=== PATIENT | female | born 1975 | race Caucasian/White ===

== ENCOUNTER → 2020-02-02 10:13 | Outpatient (BNVA) | payer OTHER, SELFPAY | PROVIDERS: Visit Provider Nurse Practitioner Family | DX: Z11.59 Encounter for screening for other viral diseases (principal) | CPT/HCPCS: 87635 ==

== ENCOUNTER 2020-06-05 04:33 | Emergency (ER) | payer OTHER, SELFPAY ==
[2020-06-05 04:35] VITALS: BP 152/116; PULSE 99; RESP 18; TEMP 36.4; O2SAT 100; BMI 23.8
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
--- NOTE | 2020-06-05 04:50 | PC.NURSE ---
Attempted to start IV on pt and draw blood and she refused. Explained to pt that IV site would be used for CT scans and blood would be to check her for possible blood loss and she refused to have IV established. Explained to pt that the blood work was important to establish a baseline for in case she is bleeding or gets worse in next few days and pt still refuses IV stick.
[2020-06-05 06:11] VITALS: RESP 16; O2SAT 99
[2020-06-05] MEDS: oxyCODONE-APAP 5-325 mg Tablet 1 TAB PO (06:11)
[2020-06-05 06:13] VITALS: PULSE 104; RESP 16; O2SAT 99
--- NOTE | 2020-06-07 12:50 | DCPLANNER ---
shop manager had message to schedule a follow up appointment for patient with [facility]. shop manager called the [facility], spoke with Lizz, gave clinic patients information. shop manager was told that patients information would be printed and reviewed. Clinic will call patient with appointment information.
--- NOTE | 2020-06-09 11:47 | DCPLANNER ---
Patient had a follow up appointment scheduled for 06.09.20 with [facility] - patient did attend appointment.
== END 2020-06-05 06:14 | disposition home or self-care (01) ==
PROVIDERS: Emergency Provider Emergency Medicine
DX: S32.009A Unspecified fracture of unspecified lumbar vertebra, initial encounter for closed fracture (principal); N85.9 Noninflammatory disorder of uterus, unspecified; V89.2XXA Person injured in unspecified motor-vehicle accident, traffic, initial encounter
CPT/HCPCS: 12345; 70450; 72125; 74176; 99281; 99283

== ENCOUNTER → 2020-06-29 13:11 | Outpatient (BNVA) | payer OTHER, SELFPAY | PROVIDERS: Visit Provider Orthopaedic Surgery | DX: S32.009A Unspecified fracture of unspecified lumbar vertebra, initial encounter for closed fracture (principal); X58.XXXA Exposure to other specified factors, initial encounter | CPT/HCPCS: 72100 ==

== ENCOUNTER → 2020-06-30 15:53 | Outpatient (BNVA) | payer MEDICAID, SELFPAY | PROVIDERS: Visit Provider Obstetrics & Gynecology | DX: D25.9 Leiomyoma of uterus, unspecified (principal) | CPT/HCPCS: 76856; 88175 ==

== ENCOUNTER → 2020-07-07 10:47 | Outpatient (BNVA) | payer MEDICAID, SELFPAY | PROVIDERS: Visit Provider Obstetrics & Gynecology | DX: N93.9 Abnormal uterine and vaginal bleeding, unspecified (principal) | CPT/HCPCS: 84443; 85025 ==

== ENCOUNTER → 2020-07-14 09:30 | Day surgery (SDC) | payer MEDICAID, SELFPAY | PROVIDERS: Visit Provider Obstetrics & Gynecology | DX: N93.9 Abnormal uterine and vaginal bleeding, unspecified (principal) | CPT/HCPCS: 82607; 82746; 83550; 84439; 84443; 84481 ==

== ENCOUNTER → 2020-07-26 08:52 | Day surgery (SDC) | payer MEDICAID, SELFPAY ==
[2020-07-26 09:19] VITALS: BP 125/84; PULSE 102; RESP 18; TEMP 36.6; O2SAT 99; BMI 24.5
[2020-07-26] MEDS: iron sucrose 200 MG in sodium chloride 0.9% (100 ml) 100 ML 220 MG IV (09:22)
== END ==
PROVIDERS: Visit Provider Internal Medicine
DX: D50.0 Iron deficiency anemia secondary to blood loss (chronic) (principal)
CPT/HCPCS: 96365; J1756

== ENCOUNTER → 2020-08-02 09:08 | Day surgery (SDC) | payer MEDICAID, SELFPAY ==
[2020-08-02 09:29] VITALS: BP 107/72; PULSE 104; RESP 18; TEMP 36.3; O2SAT 99
[2020-08-02] MEDS: iron sucrose 200 MG in sodium chloride 0.9% (100 ml) 100 ML 220 MG IV (09:44)
== END ==
PROVIDERS: Visit Provider Internal Medicine
DX: D50.0 Iron deficiency anemia secondary to blood loss (chronic) (principal)
CPT/HCPCS: 96365; J1756

== ENCOUNTER 2020-08-11 09:49 | Emergency (ER) | payer MEDICAID, SELFPAY ==
[2020-08-11 09:51] VITALS: BP 112/95; PULSE 119; RESP 22; TEMP 36.8; O2SAT 98; BMI 24.5
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
[2020-08-11 10:14] VITALS: RESP 20; O2SAT 97
[2020-08-11] MEDS: HYDROmorphone 1 mg/mL INJ 1 mL IVP (10:14)
[2020-08-11 10:17] LABS: Basophils % 0.5 %; Hematocrit 31.8 % (37.0-47.0); Hemoglobin 9.3 g/dL (11.5-15.3); Lymphocytes # 0.9 10^3/uL (0.8-4.8); Lymphocytes % 16.3 %; Mean Corpuscular HGB Conc 29.2 g/dL (30.0-36.0); Mean Corpuscular Volume 78.7 fL (81-99); Monocytes # 0.9 10^3/uL (0.2-0.9); Monocytes % 15.4 %; Neutrophils # 3.86 10^3/uL (1.8-7.7); Neutrophils % 66.8 %; Nucleated Red Blood Cells % 0 %; Platelet Count 347 10^3/cmm (130-400); Red Blood Count 4.04 10^6/uL (4.1-5.3); Red Cell Distribution Width 21.8 % (12.1-15.1); White Blood Count 5.8 10^3/uL (4.0-10.0)
[2020-08-11] MEDS: iohexol 300 mg/mL 100 mL Btl IV (10:19)
[2020-08-11 10:25] VITALS: BP 119/72; PULSE 113; O2SAT 90
[2020-08-11 10:40] LABS: Alanine Aminotransferase 18 U/L (0-33); Albumin Level 3.6 g/dL (3.5-5.2); Alkaline Phosphatase 82 IU/L (35-105); Anion Gap 16.6 (5-19); Aspartate Amino Transferase 17 U/L (0-32); Blood Urea Nitrogen 7 mg/dL (6-20); Calcium 8.2 mg/dL (8.5-10.5); Carbon Dioxide 22 mmol/L (22-29); Chloride 95 mmol/L (98-107); Creatine Phosphokinase 43 U/L (26-192); Globulin 3.3 g/dL (1.3-4.6); Glomerular Filtration Rate 91.3 mL/min (90-130); Glucose 181 mg/dL (65-115); Iron 12 ug/dL (37-145); Lipase 16 U/L (13-60); Osmolality Calculated 273 mOsm/kg (285-295); Potassium 3.6 mmol/L (3.5-5.1); Sodium 130 mmol/L (136-145); Total Bilirubin 0.9 mg/dL (0.15-1.2); Total Protein 6.9 g/dL (6.6-8.7)
[2020-08-11 10:44] LABS: HCG Qualitative Urine. Negative (Negative)
--- NOTE | 2020-08-11 10:52 | ECG_ITS ---
[facility] Test Date: 2020-08-11 Pat Name: Jacqueline Montalvo Department: Room: Gender: Female Police Specialist: : 1975 Requested By: Carol Sumner Order Number: [id number] Adalberto MD: Kermit Malone M.D. Measurements Intervals [place] Rate: 115 P: 53 [place]: 127 QRS: 31 QRSD: 85 T: 47 QT: 307 QTc: 425 Interpretive Statements SINUS TACHYCARDIA POSSIBLE LEFT ATRIAL ENLARGEMENT [-0.1mV P WAVE IN V1/V2] MINIMAL ST DEPRESSION [0.025+ mV ST DEPRESSION] ABNORMAL RHYTHM ECG No previous ECG available for comparison Electronically Signed On 08-11-2020 23:55:56 CDT by Kermit Malone M.D. [id number]
[2020-08-11 11:08] LABS: Bacteria Urine TRACE /hpf; Bilirubin Urine 1+ (Negative); Blood Urine 3+ (Negative); Glucose Urine UA Norm (Normal); Ketones Urine 1+ (Negative); Leukocyte Esterase Urine 1+ (Negative); Nitrate Urine Positive (Negative); Protein Urine 1+ (Negative); Specific Gravity, Urine 1.005 (1.005-1.030); Urine Appearance Cloudy (CLEAR); Urine Color Yellow (Yellow); Urobilinogen Urine 4 mg/dL (Negative); WBC Urine 80-100 /hpf (0-5); pH Urine 5 (5-7)
[2020-08-11 11:09] LABS: Add Urine Culture? Yes
[2020-08-11] MEDS: cefTRIAXone 1,000 MG in sodium chloride 0.9% (plus) 50 ML 100 MG IV (11:41)
[2020-08-11 11:47] VITALS: BP 122/75; PULSE 118; RESP 16; O2SAT 95
--- NOTE | 2020-08-11 11:50 | ED_ITS ---
HPI - Female Genitourinary General: Chief complaint: Urogenital-Female Stated complaint: POSS KIDNEY STONES Time Seen by Provider: 08/11/20 09:54 Source: patient, family and old records reviewed History of Present Illness: HPI Narrative: Patient presents with 2 days of lower back pain and abdominal bloating. Pain is severe on both sides but the right is worse. She has a history of kidney stones and a large fibroid Patient is currently undergoing iron transfusions due to chronic anemia from this chronic fibroid blood loss sHowever she did not get her iron infusion this previous Sunday 2 days ago because she was having such significant pain. She is had 2 iron transfusions Since July 14. Denies any significant changes in her bleeding status. Review of Systems General: Reports: 10 or more systems reviewed and unremarkable except in HPI and below Narrative: General: denies fatigue, fever or chills HEENT: denies ear pain, denies nasal congestion, denies vision changes, denies sore throat Neck: denies masses or pain Resp: denies cough, denies shortness of breath, denies pleuritic pain Cardio: denies chest pain, denies edema GI: denies abdominal pain, denies N/V/D, denies black/tarry or bloody stools : denies hematuria, denies dysuria, denies urinary urgency or frequency Neuro: denies headache, denies dizziness, denies motor or sensory changes Musculoskeletal: ++ low back pain, denies swelling Skin: denies rashes Psych: denies SI or HI Endocrine: denies thyroid symptoms, denies lymphadenopathy all over ROS reviewed and patient denies [facility] ED PFSH: Medical History No pertinent past medical history Denies diabetes, asthma, hypertension, seizures, DVT/PE PCP: None Surgical History S/P section x 3 1998, 2001, 2004 all at [facility] in [place], [place] S/P tubal ligation performed at time of last in 2004 Family History Father Diabetes Hypertension Denies family history of Colon cancer Ovarian cancer Heart disease Hyperlipidemia Breast cancer Uterine cancer Thyroid condition Stroke Social History (Reviewed 07/19/20 @ 13:12 by KAILASH Galeas Smoking and tobacco status: never smoked Alcohol intake: never Physical Exam Narrative: EXAM NARRATIVE: General: a/o/3, appears uncomfortable Head: atraumatic HEENT: normal eyes, normal conjunctiva, normal hearing, normal external nose, normal mouth, mucous membranes moist Neck: FROM, trachea midline Chest: normal expansion, no gross deformities Resp: normal speech, no retractions, no accessory muscle use, CTA bilaterally Cardio: regular rate and rhythm and no murmur, no peripheral edema, normal peripheral pulses GI: soft, flat non tender, no guarding normal BS, mild abd distention : deferred Musculoskeletal: FROM, no pain or gross deformities Neuro: a/o appropriate for age, no gross motor or sensory deficitys, CN II-XII grossly intact, normal coordination, normal speech Skin: no rashes Psych: cooperative, normal mood and effect Course ED course: Patient did not tolerate her IV stick very well she does not like needles Vital Signs: Vital signs: Vital Signs Temperature 98.2 F 08/11/20 09:51 Pulse Rate 117 H 08/11/20 13:43 Respiratory Rate 16 08/11/20 13:14 Blood Pressure 92/67 08/11/20 13:43 Pulse Oximetry 100 08/11/20 13:43 MDM - Female MDM Narrative: Medical decision making narrative: However her pain is mostly bilateral she does have some right-sided pain worse than the left Patient was started on IV fluids and pain control Discussed with patient her pyelonephritis as well as spoke with gynecology Dr. Flores regarding her CT results of this large fibroid Reviewed the images and her results and fibroid is stable in size. He does not feel this needs to have emergent removalThat her pain is most likely due to her pyelonephritis which patient denies having any urinary symptoms over the past couple of days more so just the pain which is more severe on the right side Recommended to pateint to be admitted for IV abx, pain control and repeating renal lab values. Her iron is now 12 and it was 29 on July 14. Gave the patient about an hour to think about her plan and she does not want to be admitted to the hospital her mom is present in the room and witnesses her refusal. She continues to have a slightly elevated pulse rate although she says her pain is somewhat better Quyen with her she needs to call gynecology and get a plan in place as well as speak to Dr. Wong regarding her iron levels are still very low Pt again refuses admission. Heart rate improved to 113 with fluids and pain control. cautioned pt on follow up and low threshold to return. Differential Diagnosis: Differential diagnosis: Likely abdominal pain, acute appendicitis, diverticulitis, gastroenteritis and small bowel obstruction Medical Records: Attestation: I reviewed the patient's medical records. Lab Data: Labs: Lab Results 08/11/20 08/11/20 08/11/20 Range/Units 10:08 10:08 10:08 WBC 5.8 (4.0-10.0) 10^3/ uL RBC 4.04 L (4.1-5.3) 10^6/u L Hgb 9.3 L (11.5-15.3) g/dL Hct 31.8 L (37.0-47.0) % MCV 78.7 L (81-99) fL MCH 23.0 L (28.0-34.0) pg MCHC 29.2 L (30.0-36.0) g/dL RDW 21.8 H (12.1-15.1) % Plt Count 347 (130-400) 10^3/c mm MPV 9.0 (7.4-10.4) fL Neut % (Auto) 66.8 % Lymph % (Auto) 16.3 % Todd % (Auto) 15.4 % Eos % (Auto) 0.0 % Baso % (Auto) 0.5 % Neut # (Auto) 3.86 (1.8-7.7) 10^3/u L Lymph # (Auto) 0.9 (0.8-4.8) 10^3/u L Todd # (Auto) 0.9 (0.2-0.9) 10^3/u L Eos # (Auto) 0.0 (0.0-0.8) 10^3/u L Baso # (Auto) 0.0 (0.0-0.1) 10^3/u L Nucleated RBC % (a uto) 0 % Nucleated RBCs # 0.0 /100WBC Sodium 130 L (136-145) mmol/L Potassium 3.6 (3.5-5.1) mmol/L Chloride 95 L (98-107) mmol/L Carbon Dioxide 22 (22-29) mmol/L Anion Gap 16.6 (5-19) BUN 7 (6-20) mg/dL Creatinine 0.7 (0.5-0.9) mg/dL GFR Calculation 91.3 (90-130) mL/min Glucose 181 H (65-115) mg/dL Calculated Osmolal ity 273 L (285-295) mOsm/k g Calcium 8.2 L (8.5-10.5) mg/dL Iron 12 L 10 L (37-145) ug/dL TIBC 295 mcg/dl % Saturation 3.3 L (20-50) % Unsat Iron Binding 285 (112-347) ug/dL Total Bilirubin 0.9 (0.15-1.2) mg/dL AST 17 (0-32) U/L ALT 18 (0-33) U/L Alkaline Phosphata se 82 (35-105) IU/L Creatine Kinase 43 (26-192) U/L Total Protein 6.9 (6.6-8.7) g/dL Albumin 3.6 (3.5-5.2) g/dL Globulin 3.3 (1.3-4.6) g/dL Lipase 16 (13-60) U/L HCG, Qual (Negative) Urine Color (Yellow) Urine Appearance (CLEAR) Urine pH (5-7) Ur Specific Gravit y (1.005-1.030) Urine Protein (Negative) Urine Glucose (UA) (Normal) Urine Ketones (Negative) Urine Blood (Negative) Urine Nitrate (Negative) Urine Bilirubin (Negative) Urine Urobilinogen (Negative) mg/dL Ur Leukocyte Leeann ase (Negative) Urine RBC (0-2) /hpf Urine WBC (0-5) /hpf Ur Squamous Epith Cells (0-5) /hpf Amorphous Sediment Urine Bacteria (NONE) /hpf 08/11/20 08/11/20 Range/Units 10:35 10:35 WBC (4.0-10.0) 10^3/ uL RBC (4.1-5.3) 10^6/u L Hgb (11.5-15.3) g/dL Hct (37.0-47.0) % MCV (81-99) fL MCH (28.0-34.0) pg MCHC (30.0-36.0) g/dL RDW (12.1-15.1) % Plt Count (130-400) 10^3/c mm MPV (7.4-10.4) fL Neut % (Auto) % Lymph % (Auto) % Todd % (Auto) % Eos % (Auto) % Baso % (Auto) % Neut # (Auto) (1.8-7.7) 10^3/u L Lymph # (Auto) (0.8-4.8) 10^3/u L Todd # (Auto) (0.2-0.9) 10^3/u L Eos # (Auto) (0.0-0.8) 10^3/u L Baso # (Auto) (0.0-0.1) 10^3/u L Nucleated RBC % (a uto) % Nucleated RBCs # /100WBC Sodium (136-145) mmol/L Potassium (3.5-5.1) mmol/L Chloride (98-107) mmol/L Carbon Dioxide (22-29) mmol/L Anion Gap (5-19) BUN (6-20) mg/dL Creatinine (0.5-0.9) mg/dL GFR Calculation (90-130) mL/min Glucose (65-115) mg/dL Calculated Osmolal ity (285-295) mOsm/k g Calcium (8.5-10.5) mg/dL Iron (37-145) ug/dL TIBC mcg/dl % Saturation (20-50) % Unsat Iron Binding (112-347) ug/dL Total Bilirubin (0.15-1.2) mg/dL AST (0-32) U/L ALT (0-33) U/L Alkaline Phosphata se (35-105) IU/L Creatine Kinase (26-192) U/L Total Protein (6.6-8.7) g/dL Albumin (3.5-5.2) g/dL Globulin (1.3-4.6) g/dL Lipase (13-60) U/L HCG, Qual Negative (Negative) Urine Color Yellow (Yellow) Urine Appearance Cloudy (CLEAR) Urine pH 5 (5-7) Ur Specific Gravit y 1.005 (1.005-1.030) Urine Protein 1+ H (Negative) Urine Glucose (UA) Norm (Normal) Urine Ketones 1+ H (Negative) Urine Blood 3+ H (Negative) Urine Nitrate Positive H (Negative) Urine Bilirubin 1+ H (Negative) Urine Urobilinogen 4 H (Negative) mg/dL Ur Leukocyte Leeann ase 1+ H (Negative) Urine RBC 5-10 H (0-2) /hpf Urine WBC 80-100 H (0-5) /hpf Ur Squamous Epith Cells 10-15 H (0-5) /hpf Amorphous Sediment Not Reportable Urine Bacteria Trace (NONE) /hpf EKG Data: EKG 1: EKG Data: 08/11/20 EKG interpretation time: 01:15 Interpretation: sinus tachycardia, no acute ST findings or depression Discharge Plan Discharge Patient Disposition: Home Clinical Impression: Pyelonephritis, Pelvic mass Condition: Stable Prescriptions: New hydrocodone-acetaminophen 7.5-325 mg tablet 1 tab PO Q6H PRN (Reason: pain) Qty: 20 RF: 0 Cipro 500 mg tablet 500 mg PO BID Qty: 14 RF: 0 Cipro 500 mg tablet 500 mg PO BID 7 Days Qty: 14 RF: 0 Cipro 500 mg tablet 500 mg PO BID Qty: 14 RF: 0 hydrocodone-acetaminophen 7.5-325 mg tablet 1 tab PO Q6H PRN (Reason: pain) Qty: 20 RF: 0 No Action ibuprofen 200 mg Tablet 800 mg PO PRN RF: 0 Discharge Orders: Discharge ED (Routine); Ordered 08/11/20 Ordered By: Carol Barton Discharge Diet: Advance as tolerated Discharge Activity: Resume usual activity Patient Instructions: Pyelonephritis Activity Restrictions/Additional Instructions: Recommended that we admit you for observation you are choosing to go home which you do assume the risks of worsening of infection pain any compression of vital organs from this mass in her uterus. Return if you have increased pain vomiting please return to the emergency department Start your antibiotics tomorrow you were given 2 doses here in the emergency department which should cover you for 24 hours. You can start your pain medication tonight as needed Recommend you call Dr. Wong and your CORRECTIONAL SECURITY OFFICER physician informing them of your recent stay in the ER and diagnosis and that furthermore your iron levels remain very low Also need you to discuss surgery date. Return if you have numbness tingling worsening of pain if you have any issues with your lower extremities Thank you for choosing [facility] for your healthcare needs today. Please realize this is an emergency room and that we are providing you with a medical screening exam and this may not be complete and all inclusive of all the testing and or work up that you may need to determine your ailment or severity of your illness. It is very important that you follow up as instructed or that you return to the Emergency Department should you have concerns or if your condition changes or worsens in any way. Coding Level of Care Code ED General Accounting Manager for Saji Portillo
[2020-08-11 12:06] LABS: Iron 10 ug/dL (37-145); Percent Saturation 3.3 % (20-50); Total Iron Binding Capacity 295 mcg/dl; Unsaturated Iron Binding 285 ug/dL (112-347)
[2020-08-11] MEDS: sodium chloride 0.9% 1,000 ML 999 ML IV (13:10)
[2020-08-11 13:14] VITALS: BP 115/77; PULSE 115; RESP 16; O2SAT 100
[2020-08-11] MEDS: levoFLOXacin 750 mg Tablet PO (13:19)
[2020-08-11] MEDS: HYDROcodone-acetaminophen 7.5-325 mg Tablet 1 TAB PO (13:19)
[2020-08-11 13:43] VITALS: BP 92/67; PULSE 117; O2SAT 100
[2020-08-11 16:55] LABS: Thyroid Stimulating Hormone 0.72 uIU/mL (0.27-4.20)
== END 2020-08-11 13:44 | disposition home or self-care (01) ==
PROVIDERS: Obstetrics & Gynecology; Emergency Provider Emergency Medicine
DX: N12 Tubulo-interstitial nephritis, not specified as acute or chronic (principal); R19.00 Intra-abdominal and pelvic swelling, mass and lump, unspecified site
CPT/HCPCS: 74177; 80053; 81001; 81025; 82550; 83540; 83550; 83690; 84443; 85025; 87077; 87086; 87186; 93005; 96365; 96375; 99284; J0696; J1170; J7030; Q9967

== ENCOUNTER 2020-08-16 09:08 | Outpatient (RCR) | payer MEDICAID, SELFPAY ==
[2020-08-16 09:23] VITALS: BP 132/80; PULSE 90; RESP 18; TEMP 36.3; O2SAT 100
[2020-08-16] MEDS: iron sucrose 200 MG in sodium chloride 0.9% (100 ml) 100 ML 220 MG IV (09:30)
== END 2020-08-27 23:59 | disposition home or self-care (01) ==
LOC: GILAB 09:08
PROVIDERS: Visit Provider Internal Medicine
DX: D50.0 Iron deficiency anemia secondary to blood loss (chronic) (principal)
CPT/HCPCS: 96365; J1756

== ENCOUNTER → 2020-10-27 11:55 | Outpatient (BNVA) | payer MEDICAID, SELFPAY | PROVIDERS: Visit Provider Nurse Practitioner Family | DX: Z20.822 Contact with and (suspected) exposure to COVID-19 (principal); J06.9 Acute upper respiratory infection, unspecified | CPT/HCPCS: 87635 ==

== ENCOUNTER → 2020-11-22 10:09 | Outpatient (BNVA) | payer MEDICAID, SELFPAY | PROVIDERS: Visit Provider Obstetrics & Gynecology | DX: D50.0 Iron deficiency anemia secondary to blood loss (chronic) (principal); D64.9 Anemia, unspecified | CPT/HCPCS: 85025 ==

== ENCOUNTER 2020-11-30 09:47 | Outpatient (CLI) | payer MEDICAID, SELFPAY ==
[2020-11-30 10:13] LABS: Basophils # 0.1 10^3/uL (0.0-0.1); Basophils % 1.3 %; Eosinophils # 0.1 10^3/uL (0.0-0.8); Eosinophils % 1.8 %; Hemoglobin 11.2 g/dL (11.5-15.3); Lymphocytes # 1.1 10^3/uL (0.8-4.8); Mean Corpuscular HGB Conc 30.3 g/dL (30.0-36.0); Mean Corpuscular Hemoglobin 26.7 pg (28.0-34.0); Mean Corpuscular Volume 88.1 fL (81-99); Monocytes # 0.6 10^3/uL (0.2-0.9); Monocytes % 14.5 %; Neutrophils # 2.01 10^3/uL (1.8-7.7); Neutrophils % 53.1 %; Nucleated Red Blood Cells % 0 %; Platelet Count 471 10^3/cmm (130-400); Red Cell Distribution Width 14.2 % (12.1-15.1); White Blood Count 3.8 10^3/uL (4.0-10.0)
[2020-11-30 14:37] LABS: Ferritin 9 ng/mL (15-150); Iron 37 ug/dL (37-145); Percent Saturation 9.3 % (20-50); Thyroid Stimulating Hormone 4.62 uIU/mL (0.27-4.20); Total Iron Binding Capacity 394 mcg/dl; Unsaturated Iron Binding 357 ug/dL (112-347); Vitamin B12 280 pg/mL (232-1245)
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
== END 2020-11-30 09:48 | disposition home or self-care (01) ==
LOC: ONCMED 09:51
PROVIDERS: Visit Provider Internal Medicine Hematology & Oncology
DX: D50.0 Iron deficiency anemia secondary to blood loss (chronic) (principal); N93.9 Abnormal uterine and vaginal bleeding, unspecified; D25.9 Leiomyoma of uterus, unspecified; D47.3 Essential (hemorrhagic) thrombocythemia; D72.819 Decreased white blood cell count, unspecified; M54.5 Low back pain; G89.29 Other chronic pain; Z79.899 Other long term (current) drug therapy
CPT/HCPCS: 36415; 82607; 82728; 83540; 83550; 84443; 85025; 99204

== ENCOUNTER 2020-12-14 05:44 | Outpatient (CLI) | payer MEDICAID, SELFPAY ==
[2020-12-14 12:08] LABS: Basophils % 1.4 %; Eosinophils # 0.1 10^3/uL (0.0-0.8); Eosinophils % 2.7 %; Hematocrit 34.6 % (37.0-47.0); Hemoglobin 10.4 g/dL (11.5-15.3); Lymphocytes # 1.2 10^3/uL (0.8-4.8); Lymphocytes % 40.2 %; Mean Corpuscular HGB Conc 30.1 g/dL (30.0-36.0); Mean Corpuscular Hemoglobin 26.9 pg (28.0-34.0); Mean Corpuscular Volume 89.6 fl (81-99); Mean Platelet Volume 9.2 fL (7.4-10.4); Monocytes # 0.4 10^3/uL (0.2-0.9); Monocytes % 11.8 %; Neutrophils # 1.29 10^3/uL (1.8-7.7); Neutrophils % 43.6 %; Nucleated Red Blood Cells % 0 %; Platelet Count 376 10^3/cmm (130-400); Red Blood Count 3.86 10^6/uL (4.1-5.3); Red Cell Distribution Width 14.4 % (12.1-15.1)
== END 2020-12-14 05:45 | disposition home or self-care (01) ==
PROVIDERS: Visit Provider Internal Medicine Hematology & Oncology
DX: D50.9 Iron deficiency anemia, unspecified (principal); D47.3 Essential (hemorrhagic) thrombocythemia; D72.819 Decreased white blood cell count, unspecified
CPT/HCPCS: 36415; 85025

== ENCOUNTER 2020-12-24 05:47 | Outpatient (CLI) | payer MEDICAID, SELFPAY ==
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
== END 2020-12-24 05:48 | disposition home or self-care (01) ==
PROVIDERS: Visit Provider Internal Medicine Hematology & Oncology
DX: D50.9 Iron deficiency anemia, unspecified (principal); N93.9 Abnormal uterine and vaginal bleeding, unspecified; D25.9 Leiomyoma of uterus, unspecified; D72.819 Decreased white blood cell count, unspecified
CPT/HCPCS: 99214

== ENCOUNTER → 2021-01-21 11:40 | Outpatient (BNVA) | payer MEDICAID, SELFPAY | PROVIDERS: Visit Provider Obstetrics & Gynecology | DX: D25.9 Leiomyoma of uterus, unspecified (principal); Z20.822 Contact with and (suspected) exposure to COVID-19 | CPT/HCPCS: 87635 ==

== ENCOUNTER 2021-01-27 15:38 | Observation (INO) | payer MEDICAID, SELFPAY ==
[2021-01-21 11:59] VITALS: BMI 24.5
[2021-01-27] VITALS (20 sets, daily range): BP systolic 117–152; BP diastolic 67–94; PULSE 75–104; RESP 15–24; TEMP 36.3–36.8; O2SAT 95–100; BMI 24.5
[2021-01-27 09:38] LABS: OR HCG Qualitative Urine Negative (Negative)
[2021-01-27 10:09] LABS: Basophils % 0.6 %; Eosinophils # 0.1 10^3/uL (0.0-0.8); Eosinophils % 1.3 %; Hemoglobin 10.6 g/dL (11.5-15.3); Lymphocytes # 1.2 10^3/uL (0.8-4.8); Lymphocytes % 25.5 %; Mean Corpuscular HGB Conc 30.3 g/dL (30.0-36.0); Mean Platelet Volume 9.3 fL (7.4-10.4); Monocytes # 0.6 10^3/uL (0.2-0.9); Monocytes % 12.1 %; Neutrophils % 60.5 %; Nucleated Red Blood Cells % 0 %; Platelet Count 394 10^3/cmm (130-400); Red Blood Count 4.07 10^6/uL (4.1-5.3); Red Cell Distribution Width 14.4 % (12.1-15.1); White Blood Count 4.6 10^3/uL (4.0-10.0)
[2021-01-27] MEDS: sodium chloride 0.9% 1,000 ML 30 ML IV (10:20)
[2021-01-27 10:28] LABS: Alanine Aminotransferase 15 U/L (0-33); Albumin Level 4.4 g/dL (3.5-5.2); Alkaline Phosphatase 71 IU/L (35-105); Anion Gap 17.8 (5-19); Aspartate Amino Transferase 16 U/L (0-32); Blood Urea Nitrogen 13 mg/dL (6-20); Calcium 8.9 mg/dL (8.5-10.5); Carbon Dioxide 25 mmol/L (22-29); Chloride 103 mmol/L (98-107); Globulin 3.5 g/dL (1.3-4.6); Glomerular Filtration Rate 134.7 mL/min (90-130); Glucose 84 mg/dL (65-115); Osmolality Calculated 291 mOsm/kg (285-295); Potassium 4.8 mmol/L (3.5-5.1); Sodium 141 mmol/L (136-145); Total Bilirubin 0.3 mg/dL (0.15-1.2); Total Protein 7.9 g/dL (6.6-8.7)
[2021-01-27] MEDS: midazolam 1 mg/mL INJ 2 mL 2 MG IVP (10:31)
--- NOTE | 2021-01-27 10:34 | ANES.PAUD2 ---
Pre-Anesthetic Update Pre-Anesthetic Assessment: Date of Surgery/Procedure: 01/27/21 Preop Diagnosis: Fibroid uterus, menorrhagia, anemia Proposed Procedure: Operation Date: 01/27/21 10:40 Proposed Procedures p Total Abdominal Hysterectomy 67391 D25.9(Not Applicable) - Alix Mayfield MD s Laparoscopic Salpingectomy(Not Applicable) - Alix Mayfield MD Any changes to Pre-Anesthetic Assessment?: No Last Intake: Intake Last Liquid Date 01/26/21 Last Liquid Time 23:55 Last Solid Date 01/26/21 Last Solid Time 23:55 Labs Last 48hrs: Laboratory Results - last 48 hr 01/27/21 01/27/21 01/27/21 09:31 09:55 09:55 WBC 4.6 RBC 4.07 L Hgb 10.6 L Hct 35.0 L MCV 86.0 MCH 26.0 L MCHC 30.3 RDW 14.4 Plt Count 394 MPV 9.3 Neut % (Auto) 60.5 Lymph % (Auto) 25.5 [place] % (Auto) 12.1 Eos % (Auto) 1.3 Baso % (Auto) 0.6 Neut # (Auto) 2.80 Lymph # (Auto) 1.2 [place] # (Auto) 0.6 Eos # (Auto) 0.1 Baso # (Auto) 0.0 Nucleated RBC % (a uto) 0 Nucleated RBCs # 0.0 Sodium 141 Potassium 4.8 Chloride 103 Carbon Dioxide 25 Anion Gap 17.8 BUN 13 Creatinine 0.5 GFR Calculation 134.7 H Glucose 84 Calculated Osmolal ity 291 Calcium 8.9 Total Bilirubin 0.3 AST 16 ALT 15 Alkaline Phosphata se 71 Total Protein 7.9 Albumin 4.4 Globulin 3.5 Urine HCG, Qual Negative Vitals: Temperature 98.1 F 01/27/21 09:33 Temperature Source Temporal Artery S can 01/27/21 09:33 Pulse Rate 87 01/27/21 09:33 Pulse Rhythm 01/27/21 09:41 Pulse Strength 3+ Normal 01/27/21 09:41 Respiratory Rate 16 01/27/21 09:33 Blood Pressure 134/94 01/27/21 09:33 Blood Pressure Caprice n 107 01/27/21 09:33 Pulse Oximetry 100 01/27/21 09:33 Oxygen Delivery Me thod 01/27/21 09:41 Cardiac Studies: No Data to Display
--- NOTE | 2021-01-27 11:56 | P.HPUD_ITS ---
Surgery/Procedure H&P Update DATE OF PROCEDURE: January 27, 2021 DATE H&P PERFORMED: 01/06/21 H&P UPDATE INFORMATION: I have reviewed H&P completed within last 30 days, I have examined patient prior to procedure, No changes to prior documentation and H&P is in [facility] EMR on date indicated PREOP DIAGNOSIS: Fibroid uterus, menorrhagia, anemia PLANNED PROCEDURE: Operation Date: 01/27/21 10:40 Proposed Procedures p Total Abdominal Hysterectomy 55255 D25.9(Not Applicable) - Alix Terry MD s Laparoscopic Salpingectomy(Not Applicable) - Alix Mayfield MD
--- NOTE | 2021-01-27 12:10 | P.ANESASSM_ITS ---
Pre-Anesthetic Assessment Pre-Anesthetic Assessment: Height/Weight: Height 1.57 m Weight 60.781 kg Temp Pulse Resp BP Pulse Ox 98.0 F 80 16 133/82 97 01/27/21 10:39 01/27/21 10:39 01/27/21 10:39 01/27/21 10:39 01/27/21 10:39 Preop Diagnosis: Fibroid uterus, menorrhagia, anemia Proposed Procedure: Operation Date: 01/27/21 10:40 Proposed Procedures p Total Abdominal Hysterectomy 18988 D25.9(Not Applicable) - Alix Terry MD s Laparoscopic Salpingectomy(Not Applicable) - Alix Mayfield MD Was Beta Seng taken within 24 hours: N/A Was Clonidine taken within 24 hours: N/A Last intake: Intake Last Liquid Date 01/26/21 Last Liquid Time 23:55 Last Solid Date 01/26/21 Last Solid Time 23:55 Social: Social History: No alcohol and No tobacco Exam: Pre-Anes Outpt Exam: alert, oriented x 3, clear to auscultation bilaterally and regular rate & rhythm Airway: Submandibular: WNL Cervical ROM: WNL MP: 1 History/ROS: No significant complaints Pulmonary: Pulmonary: None reported CV/HEM: CV/HEM: Anemia Comments: Breast Ca : : None reported Hepatic: Hepatic: None reported GI: GI: None reported Metabolic: Metabolic: None reported Musc/skel: Musc/skel: None reported Neuropsych: Neuropsych: None reported Anesthetic Plan: ASA status: 2 Anesthesia: General Risk of > 500 ml blood loss (7ml/kg in children): Yes, adequate IV access and fluids planned Meds/Allergies 2 Current Medications: Current Medications Generic Name Dose Route Start Last Admin Trade Name Freq PRN Reason Stop Dose Admin Sodium Chloride 1,000 mls @ 30 ml s/hr 01/27/21 09:30 01/27/21 10:20 Sodium Chloride 0.9% IV 01/28/21 09:29 30 mls/hr .Q24H LA Administration Midazolam HCl 2 mg 01/27/21 09:25 01/27/21 10:31 Midazolam 1 Mg/M l Inj 2 Ml IVP 2 mg Q5M PRN Administration Preop Anxiety PFSH Anesthesia PFSH: Medical History No pertinent past medical history Denies diabetes, asthma, hypertension, seizures, DVT/PE PCP: None Surgical History S/P section x 3 1998, 2001, 2004 all at [facility] in [place], [place] S/P tubal ligation performed at time of last in 2004 Family History Father Diabetes Hypertension Denies family history of Colon cancer Ovarian cancer Heart disease Hyperlipidemia Breast cancer Uterine cancer Thyroid condition Stroke Social History Smoking and tobacco status: never smoked Alcohol intake: never Female Reproductive History: Date of last menstrual period: 12/27/20 Data Anesthesia CBC & Chem 7: 01/27/21 09:55 01/27/21 09:55 Other Labs: Laboratory Results - last 48 hr 01/27/21 01/27/21 01/27/21 09:31 09:55 09:55 WBC 4.6 RBC 4.07 L Hgb 10.6 L Hct 35.0 L MCV 86.0 MCH 26.0 L MCHC 30.3 RDW 14.4 Plt Count 394 MPV 9.3 Neut % (Auto) 60.5 Lymph % (Auto) 25.5 [place] % (Auto) 12.1 Eos % (Auto) 1.3 Baso % (Auto) 0.6 Neut # (Auto) 2.80 Lymph # (Auto) 1.2 [place] # (Auto) 0.6 Eos # (Auto) 0.1 Baso # (Auto) 0.0 Nucleated RBC % (auto) 0 Nucleated RBCs # 0.0 Sodium 141 Potassium 4.8 Chloride 103 Carbon Dioxide 25 Anion Gap 17.8 BUN 13 Creatinine 0.5 GFR Calculation 134.7 H Glucose 84 Calculated Osmolality 291 Calcium 8.9 Total Bilirubin 0.3 AST 16 ALT 15 Alkaline Phosphatase 71 Total Protein 7.9 Albumin 4.4 Globulin 3.5 Urine HCG, Qual Negative Blood Type Rho(D) Type Antibody Screen 01/27/21 09:55 WBC RBC Hgb Hct MCV MCH MCHC RDW Plt Count MPV Neut % (Auto) Lymph % (Auto) [place] % (Auto) Eos % (Auto) Baso % (Auto) Neut # (Auto) Lymph # (Auto) [place] # (Auto) Eos # (Auto) Baso # (Auto) Nucleated RBC % (auto) Nucleated RBCs # Sodium Potassium Chloride Carbon Dioxide Anion Gap BUN Creatinine GFR Calculation Glucose Calculated Osmolality Calcium Total Bilirubin AST ALT Alkaline Phosphatase Total Protein Albumin Globulin Urine HCG, Qual Blood Type B Positive Rho(D) Type Positive Antibody Screen Negative Cardiac Studies: No Data to Display
--- NOTE | 2021-01-27 15:28 | P.OP_ITS ---
Operative Report Date of procedure: January 27, 2021 OPERATIVE REPORT Date of surgery: 01/27/2021 Date of dictation: 01/27/2021 Preoperative diagnosis: Menorrhagia, fibroid uterus, previous delivery x3, anemia Postoperative diagnosis/findings: Same, grossly enlarged fibroid uterus extending about 4 to 5 cm above the umbilicus. Dense adhesions of the anterior abdominal wall to the anterior surface of the uterus. Normal tubes and ovaries bilaterally. On cystoscopy normal bladder and normal ureteral reflux noted by Indio Dalal. Procedure done: Total abdominal hysterectomy, bilateral salpingo-oophorectomy, cystoscopy performed by Dr. Dalal after intraoperative consult was called- please see his note for details Specimens removed/disposition of specimens: Uterus ovaries bilateral tubes and cervix sent to pathology Surgeon: Dr. Alix Reyes Physician senior court office assistant: Ina Hernandez Brittany Anesthesia: General endotracheal tube anesthesia Estimated blood loss: 500 ml Intravenous fluids: 2500 mL of LR Urine output: 250 mL of clear urine at the end of procedure Medications: As per anesthesia records Complications: None, patient was extubated and taken to the recovery room in stable condition PROCEDURE: After consent was obtained patient was taken to the operating room where she was placed under general anesthesia. Sequential compression boots and Dimas catheter were placed. She was prepped and draped in the usual sterile fashion in a dorsal supine position. A vertical skin incision was made with a knife starting below the navel and extending down to the pubic symphysis. This was carried down to the fascia with electrocautery and a scalpel. Fascia was incised in the midline and extended both superiorly and inferiorly. This incision was then carried superiorly extending 4 to 5 cm above the umbilicus given the uterus extended to that location. Rectus muscles were in the midline. Peritoneum was identified and was sharply entered. Dense adhesions were noted. Peritoneal incision was extended superiorly and inferiorly. Good hemostasis was achieved. The uterus was delivered through this incision and no adhesions were noted on the posterior aspect of the uterus. The anterior adhesions of the anterior abdominal wall onto the uterus were taken down carefully trying to stay as close to the uterus as possible. There were really no planes for dissection and there was concern that the bladder may have been involved given the density of the adhesions and clinical clear planes likely from her previous C-sections. At this time it was decided that after the gynecological part of surgery was done will call urology consult just to ensure that bladder and ureters are normal. Dissection was continued. Lower down bladder flap was able to be created once the dense anterior lesions were taken down. With this the bowel was packed away and pelvis was visualized. Findings noted as discussed above. The ovaries were adherent to the uterus and trying to separate them cause bleeding and decision was made to remove ovaries at this time The right ovarian vessels were identified and a window was made in the broad ligament under this and the abdominal Voyant was used to doubly cauterized the IP ligament and then cut it. Good hemostasis was noted. The right round ligament was clamped cut and suture ligated with 0 Vicryl suture. The peritoneum was then opened up and connected to the previously made bladder flap. Surgery was technically difficult by the adhesions and distortion of anatomy by the enlarged fibroid uterus. Using the abdominal cautery device staying as close to the uterus as possible the tissue of the broad ligament was clamped cauterized and then cut trying to stay away from the lateral sidewalls. The uterine vessels were skeletonized clamped and cauterized as well. The left round ligament was clamped, cut and suture ligated with 0 Vicryl suture. The broad ligament was opened and the incision carried superiorly parallel to the left ovarian vessels. The infundibulopelvic ligament. fallopian tube was cauterized to create a pedicle and then cut with the abdominal cautery device. Good hemostasis was noted. The broad ligament incision was extended inferiorly and carried over the lower uterine segment to meet with the dissection the contralateral side and a bladder flap was created. The bladder was then off from the cervix without any difficulty. Using the cautery device we proceeded down the left side of the uterus staying as close to the uterus is possible until the level of the cervix. The bladder was then sharply dissected away from the cervix until it was carried below the level of the cervix. Once we reached the level of the internal os we switched to using straight Aaron clamp and suture ligated the remainder of the parametria up to the level of the external os. The remaining portion of the parametria was then serially clamped, cut, and suture ligated with 0 Vicryl suture bilaterally until the bottom of the cervix was reached. At this point, sharply curved clamps were placed across the top of the vagina and the using scissors the vaginal tissue was cut and specimen removed. With this the uterus and cervix were removed. The cervix was inspected and noted to be complete. Bilateral tubes and ovaries went out with the specimen as well. The corners of the cuff were secured with 0 Vicryl suture in a Aaron fashion bilaterally. The remaining portion of the vaginal cuff was closed with 0 Vicryl suture in an interrupted [id number] fashion. The area was thoroughly inspected and noted to be hemostatic. It was irrigated and noted to be hemostatic. At this time Dr. Dalal was available and cystoscopy was performed-please see his procedure note for details--he noted intact bladder without any defect suture or lesions and ureteral jets. Catheter was replaced. The pelvis was irrigated once again and hemostasis was confirmed especially at site of IP ligament. With this good hemostasis was achieved. Surgicel was placed over the vaginal cuff. The fascia, rectus muscles, and peritoneum were closed as a single layer using looped 0 PDS suture in a mass closure. The subcutaneous layer was irrigated and noted to be hemostatic. It was reapproximated using 2-0 plain sutures in a continuous fashion. The skin was reapproximated using skin chong. Pressure dressing was applied onto the abdomen. Lap instrument and needle counts were correct x2. Patient was extubated without difficulty and taken to the recovery room in a stable condition. Dimas catheter was left in place. This documentation was created by [employer] paper products machine operator software (known for inherent paper products machine operator error). Every effort was made to assure accuracy of paper products machine operator. Any obvious errors or omissions should be clarified with the author of the document. Pre-op Diagnosis: Fibroid uterus, menorrhagia, anemia
[2021-01-27] MEDS: fentaNYL 50 mcg/mL INJ 2mL IVP (15:51)
[2021-01-27 15:54] LABS: Basophils % 0.6 %; Eosinophils % 0.2 %; Hematocrit 28.9 % (37.0-47.0); Hemoglobin 8.8 g/dL (11.5-15.3); Lymphocytes # 0.7 10^3/uL (0.8-4.8); Lymphocytes % 12.1 %; Mean Corpuscular HGB Conc 30.4 g/dL (30.0-36.0); Mean Corpuscular Hemoglobin 26.7 pg (28.0-34.0); Mean Corpuscular Volume 87.6 fl (81-99); Mean Platelet Volume 9.8 fL (7.4-10.4); Monocytes # 0.3 10^3/uL (0.2-0.9); Monocytes % 5.5 %; Neutrophils # 4.44 10^3/uL (1.8-7.7); Neutrophils % 81.4 %; Nucleated Red Blood Cells % 0 %; Platelet Count 336 10^3/cmm (130-400); Red Cell Distribution Width 14.5 % (12.1-15.1); White Blood Count 5.5 10^3/uL (4.0-10.0)
[2021-01-27] MEDS: morphine 4 mg/mL SDV 1 mL 2 MG IVP ×2 (16:27→21:38)
[2021-01-27] MEDS: dextrose 5%-lactated ringers 1,000 ML 125 ML IV (16:35)
[2021-01-27] MEDS: ibuprofen 800 mg tablet PO ×2 (16:35→23:42)
[2021-01-27] MEDS: docusate sodium 100 mg Capsule PO (18:30)
[2021-01-27] MEDS: HYDROcodone-acetaminophen 5-325 mg Tablet PO (18:30)
--- NOTE | 2021-01-27 18:59 | PC.NURSE ---
Patient moved from med surg to OB at this time. Patient complaining of pain 02/06. Patient was treated with norco and nausea medicine prior to leaving med surg. Patient was explained that it was not time for any IV medicine at this time
[2021-01-28] VITALS (12 sets, daily range): BP systolic 117–140; BP diastolic 70–83; PULSE 75–115; RESP 16–17; TEMP 36.6–36.9; O2SAT 94–100
[2021-01-28] MEDS: dextrose 5%-lactated ringers 1,000 ML 125 ML IV ×2 (03:30→10:54)
[2021-01-28] MEDS: HYDROcodone-acetaminophen 5-325 mg Tablet PO ×3 (04:03→20:55)
[2021-01-28 05:00] LABS: Hematocrit 30.7 % (37.0-47.0); Hemoglobin 9.4 g/dL (11.5-15.3); Mean Corpuscular HGB Conc 30.6 g/dL (30.0-36.0); Mean Corpuscular Volume 84.8 fl (81-99); Mean Platelet Volume 9.5 fL (7.4-10.4); Platelet Count 392 10^3/cmm (130-400); Red Blood Count 3.62 10^6/uL (4.1-5.3); Red Cell Distribution Width 14.3 % (12.1-15.1)
[2021-01-28] MEDS: ibuprofen 800 mg tablet PO ×2 (09:33→17:01)
[2021-01-28] MEDS: docusate sodium 100 mg Capsule PO ×2 (09:34→20:55)
--- NOTE | 2021-01-28 11:45 | PM.PN ---
Subjective Subjective: Interval history: SUBJECTIVE: Jacqueline is doing well today. She feels like she is doing better than expected. She is still is pretty uncomfortable but pain is well controlled when she takes her pain medication. She finds it hard to do the incentive spirometer and is working on trying to improve its use. She does like the abdominal binder and is ambulated well. She denies nausea, vomiting, fever, chest pain, shortness of breath. She is tolerating clears without any difficulty and wants some Sprite now. No other questions or concerns today. OBJECTIVE/PHYSICAL EXAM: Gen.: No acute distress Heart: S1-S2 heard, regular rate and rhythm Lungs: Clear to auscultation bilaterally Abdomen: Soft, fundus firm below umbilicus, tenderness around incision. Incision: Dressing in place appears clean dry and intact. Legs: No calf tenderness, no pedal edema. SCDs in place ASSESSMENT AND PLAN: 45-year-old 3 para 3 status post total abdominal hysterectomy and bilateral salpingo-oophorectomy for fibroid uterus, postoperative day #1 -Patient doing well-hemoglobin stable and vital signs stable -Continue routine postoperative care-p.o. medication is much as possible with IV pain medicine only if breakthrough pain. -Plan to remove catheter at 2 PM and encourage ambulation. -Anticipate staying for another 1 or 2 days to recover from surgery. -Continue clear liquid diet until passing flatus at which point we will advance diet. Vitals/I&O/Wt Last Vital Signs Temp 98.1 F 01/28/21 10:30 Pulse 94 01/28/21 10:30 Resp 16 01/28/21 10:30 BP 118/77 01/28/21 10:30 Pulse Ox 100 01/28/21 10:30 01/27/21 01/28/21 01/28/21 22:59 06:59 14:59 Intake Total 500 / 1560 1000 / 2560 925 / 925 Output Total 1500 / 1500 1000 / 2500 700 / 700 Balance -1000 / 60 0 / 60 225 / 225 Weight last 48 hrs Weight 134 lb Physical Exam Urinary Catheter Management^: Dimas: Cath Placed During This Visit: yes Urinary Catheter Date of Insertion: 01/27/21 Urinary Catheter Time of Insertion: 12:56 Data : 01/28/21 04:55 01/27/21 09:55 Attestations Medical Necessity Statement*: Patient will need to stay 1-2 more midnights to recover from surgery Coding Level of Care Code Acute Hvac R Instructor for Saji Portillo
--- NOTE | 2021-01-28 14:15 | PC.NURSE ---
Pt up and ambulating in hallway without difficulties. Pt ambulated 5 laps around nurses stations and back to room. Pt abdominal dressing removed, incision noted to asymptomatic and without signs of infection at this time. Treasure pad then placed over incision and abdominal binder replaced per pt request.
[2021-01-28] MEDS: simethicone 80 mg Chew PO (20:55)
--- NOTE | 2021-01-28 20:56 | PC.NURSE ---
Colace 100mg PO given at this time per patient request due to 1800 dose being missed.
[2021-01-29] MEDS: ibuprofen 800 mg tablet PO ×2 (02:16→08:43)
[2021-01-29 04:16] VITALS: BP 127/76; PULSE 99; RESP 19
[2021-01-29 04:40] LABS: Basophils % 0.6 %; Eosinophils % 0.8 %; Hematocrit 27.6 % (37.0-47.0); Hemoglobin 8.3 g/dL (11.5-15.3); Lymphocytes # 1.4 10^3/uL (0.8-4.8); Lymphocytes % 28.8 %; Mean Corpuscular HGB Conc 30.1 g/dL (30.0-36.0); Mean Corpuscular Hemoglobin 26.1 pg (28.0-34.0); Mean Corpuscular Volume 86.8 fl (81-99); Mean Platelet Volume 9.7 fL (7.4-10.4); Monocytes # 0.7 10^3/uL (0.2-0.9); Monocytes % 15.4 %; Neutrophils # 2.57 10^3/uL (1.8-7.7); Neutrophils % 54.2 %; Nucleated Red Blood Cells % 0 %; Platelet Count 347 10^3/cmm (130-400); Red Blood Count 3.18 10^6/uL (4.1-5.3); White Blood Count 4.8 10^3/uL (4.0-10.0)
[2021-01-29] MEDS: HYDROcodone-acetaminophen 5-325 mg Tablet PO ×2 (04:44→09:30)
[2021-01-29 05:13] LABS: Alanine Aminotransferase 8 U/L (0-33); Albumin Level 3.1 g/dL (3.5-5.2); Alkaline Phosphatase 46 IU/L (35-105); Anion Gap 10.6 (5-19); Aspartate Amino Transferase 11 U/L (0-32); Blood Urea Nitrogen 3 mg/dL (6-20); Carbon Dioxide 26 mmol/L (22-29); Chloride 108 mmol/L (98-107); Globulin 2.9 g/dL (1.3-4.6); Glomerular Filtration Rate 242.8 mL/min (90-130); Glucose 86 mg/dL (65-115); Osmolality Calculated 288 mOsm/kg (285-295); Potassium 3.6 mmol/L (3.5-5.1); Sodium 141 mmol/L (136-145); Total Bilirubin 0.2 mg/dL (0.15-1.2)
[2021-01-29 08:37] VITALS: BP 121/76; PULSE 99; RESP 14; TEMP 37; O2SAT 97
[2021-01-29] MEDS: docusate sodium 100 mg Capsule PO (08:43)
--- NOTE | 2021-01-29 09:04 | P.DS_ITS ---
Discharge Providers AGILE SCRUM MASTER Date of Admission: 01/27/21 15:38 Date of Discharge: 01/29/21 Attending Provider at Admission: Alix Mayfield MD Attending Provider at Discharge: Alix Mayfield MD Date of surgery: 01/27/2021 Date of dictation: 01/27/2021 Preoperative diagnosis: Menorrhagia, fibroid uterus, previous delivery x3, anemia Postoperative diagnosis/findings: Same, grossly enlarged fibroid uterus extending about 4 to 5 cm above the umbilicus. Dense adhesions of the anterior abdominal wall to the anterior surface of the uterus. Normal tubes and ovaries bilaterally. On cystoscopy normal bladder and normal ureteral reflux noted by Dr. Dalal. Procedure done: Total abdominal hysterectomy, bilateral salpingo-oophorectomy, cystoscopy performed by Dr. Dalal after intraoperative consult was called- please see his note for details Specimens removed/disposition of specimens: Uterus ovaries bilateral tubes and cervix sent to pathology Surgeon: Dr. Alix Reyes PREHOSPITAL COURSE: Ms. Locke is a 45-year-old 3 para 3-0-0-3 with anemia and abnormal uterine bleeding secondary to an enlarged fibroid uterus. She desired surgical intervention and presented on 01/27/2021 for scheduled surgery. She had no new complaints and had been receiving IV iron and vitamin B12 prior to surgery to improve her hemoglobin. Her preoperative hemoglobin at time of admission was 10.8. HOSPITAL COURSE: She underwent an uncomplicated total abdominal hysterectomy, bilateral salpingo- oophorectomy on 01/27/2021. Hemoglobin immediately postoperatively was 8.8. She did well on postoperative day 0 and was ambulating well, tolerating clear liquid diet. Pain was well-controlled with by mouth and IV pain medication. She denied nausea, vomiting, fever, chills, shortness of breath, leg pain. She had minimal vaginal bleeding. Dimas catheter was kept overnight and she had adequate urine output. On postoperative day #1 she continued to do well with stable vital signs and stable hemoglobin at 9.4. Dimas catheter was removed and patient was able to void with minimal residual noted on bladder scan. She ambulated well started passing flatus and then tolerated a regular diet. On postoperative day #2 she continued to do well. Incision was clean dry and intact and her abdomen was soft and nondistended. She had no new symptoms and overall felt much better with her uterus. Hemoglobin on postoperative day #2 was 8.3. Vital signs were stable. She was discharged home on postoperative day #2 in a stable condition. Warning signs for wound infection, cuff infection, DVT/PE were reviewed with her. Post surgical activity restrictions were also reviewed with her at all her questions were answered to her satisfaction. This documentation was created by [employer] long line teamster software (known for inherent long line teamster error). Every effort was made to assure accuracy of long line teamster. Any obvious errors or omissions should be clarified with the a uthor of the document. Reason for Visit Reason for Visit: tvh Physical Exam Urinary Catheter Management^: Dimas: Cath Placed During This Visit: yes, but has since been removed by the nurse Reason for Continuing Indwelling Catheter: Decision to DC Catheter Urinary Catheter Date of Insertion: 01/27/21 Urinary Catheter Time of Insertion: 12:56 Date Urinary Catheter Removed: 01/28/21 Time Urinary Catheter Discontinued: 14:00 Discharge Data Data Completed and Pending: Pending at discharge Category Date Time Status PRBC [Leukocyte R educed RBC] Routin e Lab 01/27/21 09:55 Results Type and Screen R outine Lab 01/27/21 09:55 Results Pathology: Surgic al [PTH] Routine Pth 01/27/21 14:48 Received Labs from last 24 hours 01/29/21 01/29/21 04:20 04:20 WBC 4.8 RBC 3.18 L Hgb 8.3 L Hct 27.6 L MCV 86.8 MCH 26.1 L MCHC 30.1 RDW 15.0 Plt Count 347 MPV 9.7 Neut % (Auto) 54.2 Lymph % (Auto) 28.8 [place] % (Auto) 15.4 Eos % (Auto) 0.8 Baso % (Auto) 0.6 Neut # (Auto) 2.57 Lymph # (Auto) 1.4 [place] # (Auto) 0.7 Eos # (Auto) 0.0 Baso # (Auto) 0.0 Nucleated RBC % (a uto) 0 Nucleated RBCs # 0.0 Sodium 141 Potassium 3.6 Chloride 108 H Carbon Dioxide 26 Anion Gap 10.6 BUN 3 L Creatinine 0.3 L GFR Calculation 242.8 H Glucose 86 Calculated Osmolal ity 288 Calcium 8.0 L Total Bilirubin 0.2 AST 11 ALT 8 Alkaline Phosphata se 46 Total Protein 6.0 L Albumin 3.1 L Globulin 2.9 Vitals: Last Vital Signs Temp 98.6 F 01/29/21 08:37 Pulse 99 01/29/21 08:37 Resp 14 01/29/21 08:37 BP 121/76 01/29/21 08:37 Pulse Ox 97 01/29/21 08:37 Discharge Plan Discharge Patient Disposition: Home Condition: Stable Prescriptions: New hydrocodone-acetaminophen 5-325 mg tablet 1 tab PO Q6H Qty: 25 RF: 0 docusate sodium 100 mg Capsule 100 mg PO BID PRN (Reason: constipation) Qty: 30 RF: 0 ibuprofen 800 mg tablet 800 mg PO Q8H Qty: 30 RF: 0 ferrous sulfate 325 mg (65 mg iron) tablet 325 mg PO BID Qty: 30 RF: 0 Continued mecobalamin (vitamin B12) 1,000 mcg tablet,chewable 1,000 mcg PO DAILY RF: 0 Discharge Orders: Discharge Order (Routine); Ordered 01/29/21 Ordered By: Alix Mayfield Referrals: Alix Mayfield MD [Physician] - 02/07/21 2:15 pm (Your 2 week post-op appointment is scheduled for 02/07/21 @2:00. Your 6 week post-op appointment is scheduled for 03/07/21 @2:15. ) Discharge Diet: Regular Patient Instructions: Hysterectomy (DC), OB Abdominal Surgery - [facility], OB Discharge Report, OB Food/Drug Interaction Guide, Opioid Safety Activity Restrictions/Additional Instructions: Pelvic rest for 6 weeks, no heavy lifting for 6 weeks, 1 week appointment for staple removal, 2-week incision check in 6-week postoperative visit. Discharge Attestations AGILE SCRUM MASTER Time Spent in Discharge Care*: greater than 30 min Coding Level of Care Code Acute Nail Professional for Saji Portillo
[2021-01-29 09:34] VITALS: BP 131/83; PULSE 90; RESP 17
[2021-01-29 09:51] VITALS: BP 131/83; PULSE 90; RESP 17
--- NOTE | 2021-01-30 08:18 | P.OP_ITS ---
Operative Report Date of procedure: January 27, 2021 Pre-op Diagnosis: Intraoperative consultation for cystoscopy. Post-op diagnosis: same Post-op Findings: Normal bladder with clear efflux bilaterally and no evidence of damage to the bladder. Procedure Done: Cystoscopy Implants: None Pathology: none sent Surgeon: Mulugeta Anesthesia: General Estimated blood loss: None Complications: None Findings: No evidence of bladder compromise. Normal mucosa. Clear reflux bilaterally. Condition: stable Disposition: other (Turned back over to Dr. Reyes to complete her procedure.) Brief History: Patient was undergoing a hysterectomy and was found to have significant adhesions of the uterus/fibroid to the bladder. The uterus had been removed at time of intraoperative consultation for cystoscopy. There is no obvious impairment of the bladder wall and no obvious involvement of the ureter but consultation was made to be sure given good exposure at this time. Procedure: I was called to the operating room for the above reasons. Patient was placed in stirrups maintaining sterility of the upper field. Routine prep of the genitalia and perineum. Draped appropriately. 21 Kiswahili cystoscope with 30 degree lens was introduced into the urethra meatus and advanced into the bladder without difficulty. The bladder was inspected with both 30 and 70 degree lenses. Bladder wall was completely intact with no evidence of hematoma, tear, or other iatrogenic concerns. Both orifices were easily identified and E flux was clear bilaterally. Good strong urinary jet. Procedure was completed. The catheter was replaced. She was then repositioned in supine position for completion of Dr. Reyes's procedure. She tolerated the urologic procedure well. No further recommendations.
== END 2021-01-29 09:45 | disposition home or self-care (01) ==
LOC: MEDSURG 15:40 → OBGYN 18:41
PROVIDERS: Anesthesiology; Urology; Admitting Provider Obstetrics & Gynecology; Visit Provider Obstetrics & Gynecology
PROC: 0UT90ZZ Resection of Uterus, Open Approach (ICD-10-PCS; CPT 58150; principal; 2021-01-27 10:35)
PROC: (CPT 58661; 2021-01-27 10:35)
PROC: 0TJB8ZZ Inspection of Bladder, Via Natural or Artificial Opening Endoscopic (ICD-10-PCS; CPT 52000; 2021-01-27 10:35)
DX: N92.0 Excessive and frequent menstruation with regular cycle (principal); D25.9 Leiomyoma of uterus, unspecified; D64.9 Anemia, unspecified
CPT/HCPCS: 58150; 36415; 51702; 80053; 81025; 84703; 85025; 85027; 86850; 86900; 86920; 88307; 96374; G0378; J0690; J1100; J2250; J2270; J2370; J2405; J2704; J2710; J3010; J3490; J7030; Q9968

== ENCOUNTER 2021-04-27 20:45 | Emergency (ER) | payer MEDICAID, SELFPAY ==
[2021-04-27 21:10] VITALS: BP 129/96; PULSE 98; RESP 16; TEMP 36.4; O2SAT 99; BMI 20.6
--- NOTE | 2021-04-27 21:24 | XRR_ITS ---
PROCEDURE INFORMATION: Exam: XR Chest Exam date and time: 04/27/2021 9:24 PM Age: 46 years old Clinical indication: Other: Weakness; Additional info: Hypoxia TECHNIQUE: Imaging protocol: XR of the chest. Views: 1 view. COMPARISON: CT abdomen pelvis w con* [id number] 08/11/2020 10:33 AM FINDINGS: Lungs: Unremarkable. No consolidation. Pleural spaces: Unremarkable. No pleural effusion. No pneumothorax. Heart/Mediastinum: Unremarkable. No cardiomegaly. Bones/joints: Unremarkable. XR/XR chest 1V portable [id number] IMPRESSION: No acute findings.
--- NOTE | 2021-04-27 21:24 | ECG_ITS ---
[facility] Test Date: 2021-04-27 Pat Name: Jacqueline Montalvo Department: Room: Gender: Female Clutch Assembler: : 1975 Requested By: Vonnie Browning Order Number: [id number] Adalberto MD: Roberto Forte M.D. Measurements Intervals [place] Rate: 124 P: 89 [place]: 154 QRS: 19 QRSD: 74 T: 41 QT: 312 QTc: 449 Interpretive Statements SINUS TACHYCARDIA Compared to ECG 08/11/2020 10:56:34 ST (T wave) deviation no longer present Electronically Signed On 04-28-2021 22:02:42 GAS BURNER OPERATOR by Roberto Forte M.D. [id number]
--- NOTE | 2021-04-27 22:07 | ED_ITS ---
HPI - General Adult General: Chief complaint: General Medical Stated complaint: WEAKNESS Time Seen by Provider: 04/27/21 21:01 Source: patient Mode of arrival: EMS Limitations: no limitations History of Present Illness: HPI narrative: 46-year-old female brought in by EMS with generalized weakness, fatigue, feeling sick for several days. Complaining of chills, body aches, chest pain, palpitations. No nausea or vomiting Family member tested positive for Covid?19 few days ago Has been using meth Denies any opiate or alcohol use. Drowsy, falls asleep during conversation, unable to get a history. Onset (ago): day(s) Associated symptoms: Reports chest pain, dyspnea, malaise and palpitations; Deny nausea or vomiting Review of Systems General: Reports: ROS unobtainable due to mental status Const: Reports: chills, body aches, change in appetite, fatigue and malaise; Denies: fever(s) Card: Reports: chest pain and palpitations Resp: Reports: dyspnea; Denies: non-productive cough or wheezing GI: Denies: nausea or vomiting PFSH ED PFSH: Medical History No pertinent past medical history Denies diabetes, asthma, hypertension, seizures, DVT/PE PCP: None Surgical History S/P section x 3 1998, 2001, 2004 all at [facility] in [place], [place] S/P tubal ligation performed at time of last in 2004 Status post hysterectomy 01/27/2021---total abdominal hysterectomy with bilateral salpingo-oophorectomy done for fibroid uterus, abnormal uterine bleeding and anemia. [place] [facility] ----> Pathology showed benign cervix endometrium myometrium ovaries and tubes with fibroids. Cervix showed chronic cervicitis. Uterine weight was 1720 g Family History Father Diabetes Hypertension Denies family history of Colon cancer Ovarian cancer Heart disease Hyperlipidemia Breast cancer Uterine cancer Thyroid condition Stroke Social History Smoking and tobacco status: never smoked Alcohol intake: never Female Reproductive History: Date of last menstrual period: 12/27/20 Physical Exam Const: EXAM LIMITATIONS: altered mental status GENERAL APPEARANCE: disheveled, lethargic, ill appearing and frail appearing O RIENTATION/CONSCIOUSNESS: Yes lethargic Neck/C-Spine: COMMON NORMALS: full ROM, no lymphadenopathy, supple and no meningeal signs Chest: COMMONS NORMALS: normal inspection of the chest and normal palpation of entire chest wall Resp: EFFORT & INSPECTION: Yes able to speak in complete sentences, Yes tachypneic, No respiratory distress, No Actively coughing, No retractions and No uses accessory muscles Cardio: COMMON NORMALS: regular rate RATE: regular rate and tachycardic GI: COMMON NORMALS: Soft to palpation and non-tender INSPECTION: Yes normal to inspection PALPATION: Yes Soft to palpation Extremity: NARRATIVE EXTREMITY EXAM: Cool, clammy, shivering Neuro: NIKKO COMA SCALE: document [facility] findings [place] coma scale eye opening: To sound [place] coma scale verbal response: Confused [place] coma scale motor response: Obey commands Nikko coma scale total score: 13 COMMON NORMALS: moves all extremities SENSORIUM/ORIENTATION: Yes lethargic and Yes fluctuating sensorium MENINGEAL SIGNS: Yes no meningeal signs Skin: COMMON NORMALS: no rashes or lesions noted and no wounds GENERAL SKIN EXAM: no rashes or lesions noted, no mottling and pallor Course Vital Signs: Vital signs: Vital Signs Temperature 97.6 F 04/27/21 21:10 Pulse Rate 98 04/27/21 21:10 Respiratory Rate 16 04/27/21 21:10 Blood Pressure 129/96 04/27/21 21:10 Pulse Oximetry 99 04/27/21 21:10 MDM - General Adult MDM Narrative: Medical decision making narrative: 46-year-old female with generalized weakness, tachycardia, chest pain, recent meth use Hypopnea resulting in hypoxia during sleep: Sats returned to normal after she is purposely woken up: Narcan given twice with minimal improvement. Possible RML non occulsive PE vs artifact; Start Lovenox 1mg/kg dose Close contact with Covid positive family member, rapid antigen test negative: COVID pcr pending Admit to obs , Dr Palomo Differential Diagnosis: Differential Diagnosis: PE, sleep apnea, distributive shock, sepsis, Medical Records: Attestation: I reviewed the patient's medical records. Lab Data: Attestation: I reviewed the patient's lab results. Labs: Lab Results 04/27/21 04/27/21 04/27/21 22:07 22:07 22:28 WBC RBC Hgb Hct MCV MCH MCHC RDW Plt Count MPV Neut % (Auto) Lymph % (Auto) [place] % (Auto) Eos % (Auto) Baso % (Auto) Neut # (Auto) Lymph # (Auto) [place] # (Auto) Eos # (Auto) Baso # (Auto) Nucleated RBC % (a uto) Nucleated RBCs # D-Dimer Specimen Type Sample Site ABG pH ABG pCO2 ABG pO2 ABG HCO3 ABG O2 Saturation ABG Base Excess Seth Test A-a O2 Gradient Hematocrit Hgb O2 Saturation Carboxyhemoglobin Methemoglobin Total Hemoglobin Ionized Calcium O2 Delivery Device FiO2 Condenser Tube Tender ID Sodium Potassium Chloride Carbon Dioxide Anion Gap BUN Creatinine GFR Calculation Glucose Calculated Osmolal ity Calcium Total Bilirubin AST ALT Alkaline Phosphata se C-Reactive Protein Total Protein Albumin Globulin Urine Color Yellow (Yellow) Urine Appearance Clear (CLEAR) Urine pH 9 H (5-7) Ur Specific Gravit y 1.015 (1.005-1.030) Urine Protein Neg (Negative) Urine Glucose (UA) Norm (Normal) Urine Ketones Negative (Negative) Urine Blood Neg (Negative) Urine Nitrate Negative (Negative) Urine Bilirubin Neg (Negative) Prot Sulfosalicyli c Acd Negative (Negative) Urine Urobilinogen Neg mg/dL mg/dL (Negative) Ur Leukocyte Leeann ase Negative (Negative) Urine Opiates Scre en Negative ng/mL ng /mL (Negative) Ur Barbiturates Sc reen Negative ng/mL ng /mL (Negative) Ur Phencyclidine S crn Negative ng/mL ng /mL (Negative) Ur Amphetamines Sc reen Positive ng/mL H ng/mL (Negative) U Benzodiazepines Scrn Negative ng/mL ng /mL (Negative) Urine Cocaine Scre en Negative ng/mL ng /mL (Negative) U Marijuana (THC) Screen Positive ng/mL H ng/mL (Negative) SARS-CoV-2 Ag (Rap id) Negative (Negative) 04/27/21 04/27/21 04/27/21 22:29 22:29 22:29 WBC 4.5 10^3/uL 10^3/ uL (4.0-10.0) RBC 4.83 10^6/uL 10^6 /uL (4.1-5.3) Hgb 12.6 g/dL g/dL (11.5-15.3) Hct 39.8 % % (37.0-47.0) MCV 82.4 fl fl (81-99) MCH 26.1 pg L pg (28.0-34.0) MCHC 31.7 g/dL g/dL (30.0-36.0) RDW 17.7 % H % (12.1-15.1) Plt Count 471 10^3/cmm H 10 ^3/cmm (130-400) MPV 9.3 fL fL (7.4-10.4) Neut % (Auto) 60.0 % % Lymph % (Auto) 29.5 % % [place] % (Auto) 8.7 % % Eos % (Auto) 0.7 % % Baso % (Auto) 0.9 % % Neut # (Auto) 2.68 10^3/uL 10^3 /uL (1.8-7.7) Lymph # (Auto) 1.3 10^3/uL 10^3/ uL (0.8-4.8) [place] # (Auto) 0.4 10^3/uL 10^3/ uL (0.2-0.9) Eos # (Auto) 0.0 10^3/uL 10^3/ uL (0.0-0.8) Baso # (Auto) 0.0 10^3/uL 10^3/ uL (0.0-0.1) Nucleated RBC % (a uto) 0 % % Nucleated RBCs # 0.0 /100WBC /100W BC D-Dimer 0.64 ug/mIFEU H u g/mIFEU (0-0.59) Specimen Type Sample Site ABG pH ABG pCO2 ABG pO2 ABG HCO3 ABG O2 Saturation ABG Base Excess Seth Test A-a O2 Gradient Hematocrit Hgb O2 Saturation Carboxyhemoglobin Methemoglobin Total Hemoglobin Ionized Calcium O2 Delivery Device FiO2 Condenser Tube Tender ID Sodium 138 mmol/L mmol/L (136-145) Potassium 4.5 mmol/L mmol/L (3.5-5.1) Chloride 100 mmol/L mmol/L (98-107) Carbon Dioxide 24 mmol/L mmol/L (22-29) Anion Gap 18.5 (5-19) BUN 10 mg/dL mg/dL (6-20) Creatinine 0.6 mg/dL mg/dL (0.5-0.9) GFR Calculation 108.6 mL/min mL/m in (90-130) Glucose 99 mg/dL mg/dL (65-115) Calculated Osmolal ity 285 mOsm/kg mOsm/ kg (285-295) Calcium 9.3 mg/dL mg/dL (8.5-10.5) Total Bilirubin 0.3 mg/dL mg/dL (0.15-1.2) AST 25 U/L U/L (0-32) ALT 27 U/L U/L (0-33) Alkaline Phosphata se 115 IU/L H IU/L (35-105) C-Reactive Protein 3.0 mg/L mg/L (0.0-4.9) Total Protein 8.5 g/dL g/dL (6.6-8.7) Albumin 4.3 g/dL g/dL (3.5-5.2) Globulin 4.2 g/dL g/dL (1.3-4.6) Urine Color Urine Appearance Urine pH Ur Specific Gravit y Urine Protein Urine Glucose (UA) Urine Ketones Urine Blood Urine Nitrate Urine Bilirubin Prot Sulfosalicyli c Acd Urine Urobilinogen Ur Leukocyte Leeann ase Urine Opiates Scre en Ur Barbiturates Sc reen Ur Phencyclidine S crn Ur Amphetamines Sc reen U Benzodiazepines Scrn Urine Cocaine Scre en U Marijuana (THC) Screen SARS-CoV-2 Ag (Rap id) 04/27/21 22:55 WBC RBC Hgb Hct MCV MCH MCHC RDW Plt Count MPV Neut % (Auto) Lymph % (Auto) [place] % (Auto) Eos % (Auto) Baso % (Auto) Neut # (Auto) Lymph # (Auto) [place] # (Auto) Eos # (Auto) Baso # (Auto) Nucleated RBC % (a uto) Nucleated RBCs # D-Dimer Specimen Type Arterial Sample Site Radial, left ABG pH 7.57 H* (7.35-7.45) ABG pCO2 23.1 mmHg L mmHg (35-45) ABG pO2 111.0 mmHg H mmHg (80.0-100.0) ABG HCO3 20.9 mmol/L L mmo l/L (22-26) ABG O2 Saturation 99.1 ABG Base Excess 0.0 mmol/L mmol/L (-2.0-2.0) Seth Test Pos A-a O2 Gradient 0.9 mmHg L mmHg (5-10) Hematocrit 33.7 % L % (37-47) Hgb O2 Saturation 98.1 % % (95-100) Carboxyhemoglobin 0.6 %THgb %THgb (0.4-20.1) Methemoglobin 0.4 % % (0.4-1.5) Total Hemoglobin 11.0 g/dL L g/dL (12-16) Ionized Calcium 1.1 mmol/L mmol/L (1.1-1.4) O2 Delivery Device Room air FiO2 21.0 % % Condenser Tube Tender ID glc Sodium 140.0 mmol/L mmol /L (131-143) Potassium 3.7 mmol/L mmol/L (3.5-5.0) Chloride Carbon Dioxide Anion Gap BUN Creatinine GFR Calculation Glucose 103.0 mg/dL mg/dL (70-115) Calculated Osmolal ity Calcium Total Bilirubin AST ALT Alkaline Phosphata se C-Reactive Protein Total Protein Albumin Globulin Urine Color Urine Appearance Urine pH Ur Specific Gravit y Urine Protein Urine Glucose (UA) Urine Ketones Urine Blood Urine Nitrate Urine Bilirubin Prot Sulfosalicyli c Acd Urine Urobilinogen Ur Leukocyte Leeann ase Urine Opiates Scre en Ur Barbiturates Sc reen Ur Phencyclidine S crn Ur Amphetamines Sc reen U Benzodiazepines Scrn Urine Cocaine Scre en U Marijuana (THC) Screen SARS-CoV-2 Ag (Rap id) Discharge Plan Discharge Patient Disposition: Admitted As Inpatient Clinical Impression: Hypoxia, sleep related, Suspected pulmonary embolism, Polysubstance abuse, Close exposure to COVID-19 virus Condition: Stable Coding Level of Care Code ED Vibration Analyst for Hemanthg Fwd Exam Comprehensive
[2021-04-27 22:17] LABS: Add Urine Microscopic? NO; Charge for UA Resulting for Rev
[2021-04-27 22:25] LABS: Urine Appearance Clear (CLEAR); Urine Color Yellow (Yellow)
[2021-04-27 22:26] LABS: Bilirubin Urine Neg (Negative); Blood Urine Neg (Negative); Glucose Urine UA Norm (Normal); Ketones Urine Negative (Negative); Leukocyte Esterase Urine Negative (Negative); Nitrate Urine Negative (Negative); Protein Urine Neg (Negative); Specific Gravity, Urine 1.015 (1.005-1.030); Sulfosalicylic Acid Urine Negative (Negative); Urobilinogen Urine Neg (Negative); pH Urine 9 (5-7)
[2021-04-27 22:31] LABS: Amphetamines Screen Urine Positive (Negative); Barbiturates Screen Urine Negative (Negative); Benzodiazepines Screen Urine Negative (Negative); Cocaine Screen Urine Negative (Negative); Opiate Screen Urine Negative (Negative); PCP Screen Urine Negative (Negative); THC Screen Urine Positive (Negative)
[2021-04-27 22:36] LABS: Basophils % 0.9 %; Eosinophils % 0.7 %; Hematocrit 39.8 % (37.0-47.0); Hemoglobin 12.6 g/dL (11.5-15.3); Lymphocytes # 1.3 10^3/uL (0.8-4.8); Lymphocytes % 29.5 %; Mean Corpuscular HGB Conc 31.7 g/dL (30.0-36.0); Mean Corpuscular Hemoglobin 26.1 pg (28.0-34.0); Mean Corpuscular Volume 82.4 fl (81-99); Mean Platelet Volume 9.3 fL (7.4-10.4); Monocytes # 0.4 10^3/uL (0.2-0.9); Monocytes % 8.7 %; Neutrophils # 2.68 10^3/uL (1.8-7.7); Nucleated Red Blood Cells % 0 %; Platelet Count 471 10^3/cmm (130-400); Red Blood Count 4.83 10^6/uL (4.1-5.3); Red Cell Distribution Width 17.7 % (12.1-15.1); White Blood Count 4.5 10^3/uL (4.0-10.0)
[2021-04-27] MEDS: sodium chloride 0.9% 1,000 ML 999 ML IV (22:46)
[2021-04-27] MEDS: acetaminophen 500 mg Tablet 1000 MG PO (22:46)
[2021-04-27] MEDS: dexamethasone 4 mg/mL INJ 8 MG IVP (22:47)
[2021-04-27 22:50] LABS: D Dimer 0.64 ug/mIFEU (0-0.59)
[2021-04-27 22:53] LABS: Alanine Aminotransferase 27 U/L (0-33); Albumin Level 4.3 g/dL (3.5-5.2); Alkaline Phosphatase 115 IU/L (35-105); Blood Urea Nitrogen 10 mg/dL (6-20); Calcium 9.3 mg/dL (8.5-10.5); Carbon Dioxide 24 mmol/L (22-29); Chloride 100 mmol/L (98-107); Globulin 4.2 g/dL (1.3-4.6); Glomerular Filtration Rate 108.6 mL/min (90-130); Glucose 99 mg/dL (65-115); Osmolality Calculated 285 mOsm/kg (285-295); Sodium 138 mmol/L (136-145); Total Bilirubin 0.3 mg/dL (0.15-1.2); Total Protein 8.5 g/dL (6.6-8.7)
[2021-04-27 22:54] LABS: SARS Covid-2 Antigen Negative (Negative)
[2021-04-27 22:55] LABS: Anion Gap 18.5 (5-19); Aspartate Amino Transferase 25 U/L (0-32); Potassium 4.5 mmol/L (3.5-5.1)
[2021-04-27 23:07] LABS: Blood Gas Allen Test Pos; Blood Gas Sample Site Radial, left; Blood Gas Sample Type Arterial; Oxygen Device ROOM AIR
[2021-04-27 23:27] LABS: ABG PCO2 23.1 mmHg (35-45); Alveolar-Arterial Oxygen Gradi 0.9 mmHg (5-10); Arterial Blood Gas Hematocrit 33.7 % (37-47); Blood Gas Operator Identificat glc; Carboxyhemoglobin 0.6 %THgb (0.4-20.1); HCO3 ABG 20.9 mmol/L (22-26); HGB O2 Sat 98.1 % (95-100); Ionized Calcium Level - ABG 1.1 mmol/L (1.1-1.4); Methemoglobin 0.4 % (0.4-1.5); Oxygen Saturation ABG 99.1; Potassium Level - ABG 3.7 mmol/L (3.5-5.0)
[2021-04-27 23:29] LABS: ABG PH Result 7.57 (7.35-7.45)
--- NOTE | 2021-04-27 23:40 | CTR_ITS ---
PROCEDURE INFORMATION: Exam: CTA Chest With Contrast Exam date and time: 04/27/2021 11:40 PM Age: 46 years old Clinical indication: Shortness of breath; Additional info: Hypoxia, chest pain TECHNIQUE: Imaging protocol: Computed tomographic angiography of the chest with contrast. 3D rendering (Not supervised by radiologist): MIP and/or 3D reconstructed images were created by the technologist. Radiation optimization: All CT scans at this facility use at least one of these dose optimization techniques: automated exposure control; mA and/or kV adjustment per patient size (includes targeted exams where dose is matched to clinical indication); or iterative reconstruction. Contrast material: OMNI 350; Contrast volume: 73 ml; Contrast route: INTRAVENOUS (IV); COMPARISON: CR XR chest 1V portable [id number] 04/27/2021 9:30 PM RADIATION DOSE METRICS: Total DLP (mGy-cm): 460.99 FINDINGS: Pulmonary arteries: A right middle lobe pulmonary artery segmental branch demonstrates a somewhat equivocal nonocclusive filling defect with contrast seen distal to it, image 2 series 219, perhaps reflecting a nonocclusive pulmonary embolus or artifact. Aorta: Unremarkable. No aortic aneurysm. No aortic dissection. Lungs: Emphysematous changes. Pleural spaces: Unremarkable. No pneumothorax. No pleural effusion. Heart: Unremarkable. No cardiomegaly. No pericardial effusion. Lymph nodes: Unremarkable. No enlarged lymph nodes. Liver: Right hepatic lobe 2.7 cm focal area of poorly defined enhancement new compared to prior exam. Bones/joints: Unremarkable. No acute fracture. Soft tissues: Unremarkable. CT/CT angio chest PE protcl [id number] IMPRESSION: 1. A right middle lobe pulmonary artery segmental branch demonstrates a somewhat equivocal nonocclusive filling defect with contrast seen distal to it, image 2 series 219, perhaps reflecting a nonocclusive pulmonary embolus or artifact. 2. Right hepatic lobe 2.7 cm focal area of poorly defined enhancement new compared to prior exam. Further evaluation with non-emergent liver MRI is recommended. 3. Emphysematous changes.
[2021-04-27] MEDS: iohexol 350 mg/mL 100 mL Btl IV (23:54)
--- NOTE | 2021-04-28 01:52 | PC.NURSE ---
When nurse entered room patient stated that she was wondering why she was getting admitted. Nurse explained that she had low oxygen saturation, and that she had possible PEs. Patient stated I just want to go home and rest . Patient was instructed about the risks of leaving against medical advise, patient verbalized that she would come back if she gotten worse. Dr. Palomo notified.
[2021-04-28 01:54] VITALS: BP 129/96; PULSE 98; RESP 16; TEMP 36.4; O2SAT 99
[2021-04-28 06:56] LABS: Alcohol Level < 10 mg/dL (0-10)
== END 2021-04-28 01:55 | disposition admitted as inpatient to this hospital (09) ==
LOC: ER 04-28 01:17 → ER IP 04-28 08:46
PROVIDERS: Emergency Provider Family Medicine; Visit Provider Student in an Organized Health Care Education/Training Program
DX: Z20.822 Contact with and (suspected) exposure to COVID-19 (principal); G47.34 Idiopathic sleep related nonobstructive alveolar hypoventilation; F19.10 Other psychoactive substance abuse, uncomplicated
CPT/HCPCS: 36600; 71045; 71275; 80051; 80053; 80306; 80307; 81003; 82330; 82805; 85025; 85378; 86140; 87426; 93005; 96361; 96374; 96375; 99284; J1100; J2310; J7030; Q9967

== ENCOUNTER 2021-05-06 11:20 | Outpatient (CLI) | payer MEDICAID, SELFPAY ==
[2021-05-06 12:26] LABS: Partial Thromboplastin Time 27.4 SECONDS (23.9-36.7)
[2021-05-06 12:29] LABS: INR 1.03 (0.8-1.2)
[2021-05-06 12:30] LABS: Fibrinogen 569 mg/dL (174-498)
== END 2021-05-06 11:21 | disposition home or self-care (01) ==
PROVIDERS: PCP Family Medicine; Visit Provider Family Medicine
DX: I26.99 Other pulmonary embolism without acute cor pulmonale (principal)
CPT/HCPCS: 36415; 85049; 85384; 85610; 85730

== ENCOUNTER 2021-08-17 09:22 | Outpatient (CLI) | payer MEDICAID, SELFPAY ==
--- NOTE | 2021-08-17 10:15 | MR_ITS ---
WS: [id number] MRI ABDOMEN with and without CONTRAST. COMPARISON: 04/27/2021 CT Multiplanar, multisequence imaging is performed with and without contrast. Sagittal and axial T1 fat sat sequences post-MultiHance 14 cc IV. In the superior RIGHT lobe of the liver is a signal mass seen on the T1 sequences. On the T2 sequence s this mass is of moderate increased signal. No fat or loss of signal on the out of phase sequences. On the dynamic imaging there is early diffuse enhancement throughout the nodule. On the delayed imagi ng and dynamic sequences up to 5 minutes the mass remains of mild diffuse enhancement. Favor there is probably a small central scar. Mass measures 2.9 x 2.4 cm and extends over length of 2.8 cm. There i s an adjacent subcentimeter cyst near the diaphragm of the liver in the RIGHT lobe posteriorly. This cyst does not enhance. No additional lesions within the liver. There is no evidence for cirrhosis. No ascites or adenopathy. No adrenal mass. The visualized aorta is normal. Spleen is normal size. Nor mal kidneys. MR/MR abdomen wo/w con* [id number] IMPRESSION: 1. Diffuse moderate enhancement of the mass within the superior RIGHT hepatic lobe. Mass measures 2.9 x 2.4 cm and extends over length of 2.8 cm. This does n ot have the typical appearance of a benign hemangioma. There may be a central s car. Mass has not increased in size or change since 04/27/2021. Favor hepatic a denoma or FNH. Flash hemangioma is within the differential. No history or imagi ng findings of cirrhosis to suggest an early HCC. Suggest correlating with an A FP level. 2. Recommend follow-up MRI liver with and without contrast to document long-te rm stability.
[2021-08-17] MEDS: gadobenate dimeglumine 20 mL vial IV (11:47)
== END 2021-08-17 09:23 | disposition home or self-care (01) ==
LOC: RAD 09:23
PROVIDERS: PCP Family Medicine; Visit Provider Family Medicine
DX: K76.9 Liver disease, unspecified (principal); R09.89 Other specified symptoms and signs involving the circulatory and respiratory systems; Z76.89 Persons encountering health services in other specified circumstances; F19.10 Other psychoactive substance abuse, uncomplicated
CPT/HCPCS: 74183